=== PATIENT | female | born 1965 | race Caucasian/White ===

== ENCOUNTER 2016-08-11 14:25 | Inpatient (IN) | payer SELFPAY ==
[~2016-08-11] VITALS: Ht 162.6 cm; Wt 43.7 kg
[2016-08-11] MEDS ORDERED: ONDANSETRON 4 MG VIAL ONE (21:18)
[2016-08-11] MEDS ORDERED: SODIUM CHLORIDE 0.9% 1,000 ML ONE (21:19)
[2016-08-11] MEDS ORDERED: MORPHINE 4 MG/ML SYR ONE ×2 (21:19→22:51)
[2016-08-11] MEDS ORDERED: PROMETHAZINE 25 MG/ML VIAL ONE (22:50)
[2016-08-11] MEDS ORDERED: MORPHINE 2 MG/ML SYR ONE (23:36)
[2016-08-12] MEDS ORDERED: SALINE FLUSH 10 ML FLUSH PRN (03:50)
[2016-08-12] MEDS ORDERED: DUONEB INH SCH (03:50)
[2016-08-12] MEDS ORDERED: TRAZODONE 100 MG TAB PO PRN (03:50)
[2016-08-12] MEDS: SODIUM CHLORIDE 0.9% FLUSH BAG 500 ML IV SCH (05:19)
[2016-08-12] MEDS: SODIUM CHLORIDE 0.9% 1,000 ML IV SCH ×2 (05:20→17:29)
[2016-08-12 05:27] VITALS: RESP 20
[2016-08-12 05:36] VITALS: BMI 16.5
[2016-08-12 05:37] VITALS: BP_SYST 139; RESP 12; TEMP 98.1
[2016-08-12] MEDS ORDERED: *PINK BRACELET XX ONE (05:40)
[2016-08-12] MEDS: LEVOTHYROXINE 0.088 MG TAB PO SCH (06:01)
[2016-08-12] MEDS: ONDANSETRON 4 MG VIAL IV PRN ×2 (06:30→13:14)
[2016-08-12] MEDS: *HOME MEDS KEPT IN PHARMACY XX SCH ×2 (08:00→19:23)
[2016-08-12] MEDS ORDERED: MISSING DOSE XX ONE (09:00)
[2016-08-12] MEDS: BUPROPION XL 150 MG TAB PO SCH (09:15)
[2016-08-12] MEDS: SALINE FLUSH 10 ML FLUSH SCH ×2 (09:16→19:23)
[2016-08-12] MEDS: FLUOXETINE 20 MG CAP PO SCH (09:16)
[2016-08-12 09:55] VITALS: Ht 162.6 cm; Wt 43.7 kg
[2016-08-12 10:59] VITALS: BP_SYST 104; RESP 16; TEMP 98
[2016-08-12] MEDS: DUONEB INH SCH ×3 (14:26→22:31)
[2016-08-12 15:44] VITALS: BP_SYST 122; RESP 16; TEMP 98.2
[2016-08-12] MEDS: QUETIAPINE XR 50 MG TAB PO SCH (17:00)
[2016-08-12 19:43] VITALS: BP_SYST 123; RESP 16; TEMP 98.5
[2016-08-12] MEDS: MIRTAZAPINE 15 MG TAB PO SCH (20:24)
[2016-08-12 23:22] VITALS: BP_SYST 110; RESP 18; TEMP 99.3
[2016-08-13] MEDS: ONDANSETRON 4 MG VIAL IV PRN ×3 (02:35→17:24)
[2016-08-13 03:57] VITALS: BP_SYST 131; RESP 16; TEMP 98.2
[2016-08-13] MEDS: SODIUM CHLORIDE 0.9% FLUSH BAG 500 ML IV SCH (05:02)
[2016-08-13] MEDS: PANTOPRAZOLE 40 MG TAB PO SCH (06:07)
[2016-08-13] MEDS: SODIUM CHLORIDE 0.9% 1,000 ML IV SCH ×2 (06:07→22:33)
[2016-08-13] MEDS: LEVOTHYROXINE 0.088 MG TAB PO SCH (06:07)
[2016-08-13] MEDS: SALINE FLUSH 10 ML FLUSH SCH ×2 (07:09→20:00)
[2016-08-13 07:33] VITALS: BP_SYST 133; RESP 15; TEMP 98.5
[2016-08-13] MEDS: DUONEB INH SCH ×4 (07:41→22:23)
[2016-08-13] MEDS: *HOME MEDS KEPT IN PHARMACY XX SCH ×2 (08:00→20:00)
[2016-08-13] MEDS: POTASSIUM CHLORIDE PREMIX 50 ML IV SCH ×6 (08:15→13:25)
[2016-08-13] MEDS: BUPROPION XL 150 MG TAB PO SCH (08:19)
[2016-08-13] MEDS: FLUOXETINE 20 MG CAP PO SCH (08:19)
[2016-08-13 12:24] VITALS: BP_SYST 138; RESP 15; TEMP 98.3
[2016-08-13] MEDS ORDERED: PROMETHAZINE 25 MG/ML VIAL IV PRN (13:35)
[2016-08-13 14:54] VITALS: BP_SYST 151; RESP 15; TEMP 98.6
[2016-08-13] MEDS: QUETIAPINE XR 50 MG TAB PO SCH (17:14)
[2016-08-13 19:41] VITALS: BP_SYST 123; RESP 16; TEMP 98.7
[2016-08-13] MEDS: MIRTAZAPINE 15 MG TAB PO SCH (21:00)
[2016-08-13] MEDS ORDERED: MORPHINE 2 MG/ML SYR IV PRN ×2 (21:15→21:20)
[2016-08-13] MEDS: MORPHINE 4 MG/ML SYR IV PRN (22:01)
[2016-08-13 22:50] VITALS: BP_SYST 141; RESP 16; TEMP 97.4
[2016-08-14] VITALS (19 sets, daily range): BP systolic 96–159; RESP 8–29; TEMP 95–98.7
[2016-08-14] MEDS: SODIUM CHLORIDE 0.9% FLUSH BAG 500 ML IV SCH (06:00)
[2016-08-14] MEDS: LEVOTHYROXINE 0.088 MG TAB PO SCH (06:30)
[2016-08-14] MEDS: PANTOPRAZOLE 40 MG TAB PO SCH (06:30)
[2016-08-14] MEDS: SODIUM CHLORIDE 0.9% 1,000 ML IV SCH ×2 (06:35→18:36)
[2016-08-14] MEDS: *HOME MEDS KEPT IN PHARMACY XX SCH ×2 (08:00→19:30)
[2016-08-14] MEDS: SALINE FLUSH 10 ML FLUSH SCH ×2 (08:00→20:00)
[2016-08-14] MEDS: DUONEB INH SCH ×4 (08:16→23:12)
[2016-08-14] MEDS: ONDANSETRON 4 MG VIAL IV PRN ×2 (09:31→15:14)
[2016-08-14] MEDS ORDERED: SODIUM CHLORIDE 0.9% 1,000 ML IV SCH (11:25)
[2016-08-14] MEDS ORDERED: MIDAZOLAM 2 MG/2 ML INJ IV ONE (11:25)
[2016-08-14] MEDS ORDERED: GLYCOPYRROLATE 0.2 MG/ML VIAL IV ONE (11:25)
[2016-08-14] MEDS ORDERED: MORPHINE 2 MG/ML SYR IV PRN (11:50)
[2016-08-14] MEDS ORDERED: MORPHINE 4 MG/ML SYR IV PRN (11:50)
[2016-08-14] MEDS ORDERED: MEPERIDINE 25 MG/ML IV PRN (11:50)
[2016-08-14] MEDS ORDERED: DILAUDID 1 MG/ML AMP IV PRN (11:50)
[2016-08-14] MEDS ORDERED: ONDANSETRON 4 MG VIAL IV PRN (11:50)
[2016-08-14] MEDS ORDERED: OXYCODONE 5 MG TAB PO PRN (11:50)
[2016-08-14] MEDS: BUPROPION XL 150 MG TAB PO SCH (13:37)
[2016-08-14] MEDS: FLUOXETINE 20 MG CAP PO SCH (13:37)
[2016-08-14] MEDS ORDERED: FENTANYL 100 MCG/2 ML AMP IV ONE (14:01)
[2016-08-14] MEDS ORDERED: PROPOFOL 50ML PER ML IV ONE (14:01)
[2016-08-14] MEDS: MORPHINE 4 MG/ML SYR IV PRN ×2 (14:02→21:33)
[2016-08-14] MEDS: QUETIAPINE XR 50 MG TAB PO SCH (16:35)
[2016-08-14] MEDS: MIRTAZAPINE 15 MG TAB PO SCH (21:00)
[2016-08-14] MEDS ORDERED: MIDAZOLAM 2 MG/2 ML INJ ONE (22:34)
[2016-08-15] VITALS (7 sets, daily range): BP systolic 96–152; RESP 16–18; TEMP 97.8–100.4
[2016-08-15] MEDS: SODIUM CHLORIDE 0.9% FLUSH BAG 500 ML IV SCH (06:00)
[2016-08-15] MEDS: PANTOPRAZOLE 40 MG TAB PO SCH ×2 (06:22→08:44)
[2016-08-15] MEDS: LEVOTHYROXINE 0.088 MG TAB PO SCH ×2 (06:22→08:44)
[2016-08-15] MEDS: SODIUM CHLORIDE 0.9% 1,000 ML IV SCH (06:23)
[2016-08-15] MEDS: DUONEB INH SCH ×4 (07:00→22:18)
[2016-08-15] MEDS: ONDANSETRON 4 MG VIAL IV PRN ×2 (07:45→12:06)
[2016-08-15] MEDS: MORPHINE 4 MG/ML SYR IV PRN (07:45)
[2016-08-15] MEDS: SALINE FLUSH 10 ML FLUSH SCH ×3 (07:46→21:11)
[2016-08-15] MEDS: *HOME MEDS KEPT IN PHARMACY XX SCH ×2 (07:46→19:24)
[2016-08-15] MEDS ORDERED: ACETAMINOPHEN 325 MG TAB PO PRN (08:15)
[2016-08-15] MEDS: BUPROPION XL 150 MG TAB PO SCH (08:44)
[2016-08-15] MEDS: FLUOXETINE 20 MG CAP PO SCH (08:44)
[2016-08-15] MEDS: QUETIAPINE XR 50 MG TAB PO SCH (16:01)
[2016-08-15] MEDS ORDERED: MISSING DOSE XX ONE (20:35)
[2016-08-15] MEDS: MIRTAZAPINE 15 MG TAB PO SCH (21:10)
[2016-08-16] MEDS: SODIUM CHLORIDE 0.9% 1,000 ML IV SCH (00:52)
[2016-08-16 04:21] VITALS: BP_SYST 90; RESP 16; TEMP 98.9
[2016-08-16] MEDS: SODIUM CHLORIDE 0.9% FLUSH BAG 500 ML IV SCH (06:00)
[2016-08-16] MEDS: LEVOTHYROXINE 0.088 MG TAB PO SCH (06:16)
[2016-08-16] MEDS: PANTOPRAZOLE 40 MG TAB PO SCH (06:16)
[2016-08-16 07:12] VITALS: BP_SYST 100; RESP 18; TEMP 97.9
[2016-08-16] MEDS: DUONEB INH SCH (07:17)
[2016-08-16] MEDS: ONDANSETRON 4 MG VIAL IV PRN (07:21)
[2016-08-16] MEDS: SALINE FLUSH 10 ML FLUSH SCH (08:00)
[2016-08-16] MEDS: *HOME MEDS KEPT IN PHARMACY XX SCH (08:00)
[2016-08-16] MEDS: FLUOXETINE 20 MG CAP PO SCH (09:00)
[2016-08-16] MEDS: BUPROPION XL 150 MG TAB PO SCH (09:00)
[2016-08-16] MEDS ORDERED: MISSING DOSE XX ONE (11:45)
[2016-08-16 12:23] VITALS: BP_SYST 100; RESP 18; TEMP 97.9
[2016-08-17] MEDS ORDERED: SODIUM CHLORIDE 0.9% FLUSH BAG 500 ML IV SCH (06:00)
== END 2016-08-16 14:09 | disposition home or self-care (01) | DRG 330 ==
LOC: ENRESERVTM → ENRESERVDT → ER 14:25 → EMR 08-12 03:48 → ENPENDDIS 08-12 03:48 → 5THW 08-12 05:07
PROVIDERS: ADMIT Internal Medicine; ATTEND Internal Medicine
PROC: 0HN7XZZ Release Abdomen Skin, External Approach (ICD-10-PCS; 2016-08-14)
PROC: 0D7 Gastrointestinal System, Dilation (ICD-10-PCS; principal; 2016-08-14 11:37)
CPT/HCPCS: 74020; 74176; 80048; 80053; 81003; 82947; 85025; 94640; 94799; 96374; 96375; 96376; 99222; 99232; 99233; 99238

== ENCOUNTER 2016-09-02 16:34 | Inpatient (IN) | payer MEDICARE ==
[~2016-09-02] VITALS: Ht 162.6 cm; Wt 53.5 kg
[~2016-09-02 16:34] MED LIST: BUPIVACA/EPI 0.25% PF 30ML NERVEBLOCK ONE; FENTANYL 100 MCG/2 ML AMP IV ONE; MIDAZOLAM 2 MG/2 ML INJ IV ONE; PROPOFOL 50ML VIAL IV ONE
[2016-09-02] MEDS ORDERED: LACT RINGERS 1,000 ML IV ONE ×2 (19:09→20:49)
[2016-09-02] MEDS ORDERED: SODIUM CHLORIDE 0.9% 1,000 ML ONE (19:10)
[2016-09-02] MEDS ORDERED: VANCOMYCIN 750 MG in SODIUM CHLORIDE 0.9% 250 ML IV ONE (20:40)
[2016-09-02] MEDS ORDERED: PIPERACIL/TAZO 4.5GM/100ML 100 ML IV ONE (20:40)
[2016-09-02] MEDS ORDERED: ONDANSETRON 4 MG VIAL IV PUSH PRN (21:50)
[2016-09-02] MEDS ORDERED: SODIUM CHLORIDE 0.9% 1,000 ML IV SCH (21:50)
[2016-09-02] MEDS ORDERED: ACETAMINOPHEN 325 MG TAB PO PRN (21:50)
[2016-09-02] MEDS ORDERED: PHARMACY TO DOSE ANTIBIOTIC IV SCH ×2 (21:50)
[2016-09-02] MEDS ORDERED: SALINE FLUSH 10 ML FLUSH PRN (21:50)
[2016-09-02] MEDS ORDERED: PHARMACY TO DOSE VANCOMYCIN IV SCH ×2 (21:50→22:05)
[2016-09-02] MEDS ORDERED: PHARMACY TO DOSE ZOSYN IV SCH (22:05)
[2016-09-02] MEDS ORDERED: SOD BICARB 8.4% SYR 50 ML IV ONE (22:10)
[2016-09-02] MEDS ORDERED: SODIUM CHLORIDE 0.9% IV SCH (23:05)
[2016-09-02] MEDS ORDERED: SODIUM BICARB 8.4% IV SCH (23:05)
[2016-09-02 23:30] VITALS: BMI 14.9
[2016-09-02 23:45] VITALS: BP_SYST 116; RESP 13
[2016-09-03] VITALS (53 sets, daily range): BP systolic 64–116; RESP 10–18; TEMP 97.6–99.1; Ht 162.6 cm; Wt 53.5 kg
[2016-09-03] MEDS ORDERED: SOD BICARB 8.4% SYR 50 ML IV ONE (02:30)
[2016-09-03] MEDS ORDERED: SODIUM BICARB 8.4% IV SCH (02:35)
[2016-09-03] MEDS ORDERED: SODIUM CHLORIDE 0.9% IV SCH (02:35)
[2016-09-03] MEDS: SODIUM CHLORIDE 0.9% FLUSH BAG 500 ML IV SCH (06:00)
[2016-09-03] MEDS ORDERED: SODIUM CHLORIDE 0.9% 1,000 ML ONE (06:35)
[2016-09-03] MEDS ORDERED: MORPHINE 4 MG/ML SYR ONE (06:35)
[2016-09-03] MEDS ORDERED: ONDANSETRON 4 MG VIAL ONE (06:35)
[2016-09-03] MEDS: PIPERACIL/TAZO 2.25GM/50ML 50 ML IV SCH ×2 (08:12→16:37)
[2016-09-03] MEDS: SALINE FLUSH 10 ML FLUSH SCH ×2 (08:23→20:02)
[2016-09-03] MEDS ORDERED: TRAZODONE 100 MG TAB PO PRN (10:55)
[2016-09-03] MEDS: FLUOXETINE 20 MG CAP PO SCH (12:03)
[2016-09-03] MEDS: SACCHA BOULARDII 250MG CAP PO SCH ×3 (12:03→20:08)
[2016-09-03] MEDS: LEVOTHYROXINE 0.088 MG TAB PO SCH (12:03)
[2016-09-03] MEDS: POTASSIUM CHLORIDE PREMIX 50 ML IV SCH ×7 (12:03→23:06)
[2016-09-03] MEDS: PANTOPRAZOLE 40 MG TAB PO SCH (12:04)
[2016-09-03] MEDS: BUPROPION XL 150 MG TAB PO SCH (12:04)
[2016-09-03] MEDS: LACT RINGERS 1,000 ML IV SCH ×2 (12:05→17:45)
[2016-09-03] MEDS ORDERED: VANCOMYCIN 500 MG in SODIUM CHLORIDE 0.9% 100 ML IV ONE (13:00)
[2016-09-03] MEDS: QUETIAPINE XR 50 MG TAB PO SCH (16:37)
[2016-09-03] MEDS: MIRTAZAPINE 15 MG TAB PO SCH (20:09)
[2016-09-03] MEDS: LOPERAMIDE 2 MG CAPSULE PO PRN (20:15)
[2016-09-03] MEDS ORDERED: SODIUM CHLORIDE 0.9% 1,000 ML IV ONE (20:55)
[2016-09-03] MEDS ORDERED: DOCUSATE SOD 100 MG CAP PO SCH (21:00)
[2016-09-04] VITALS (74 sets, daily range): BP systolic 66–122; RESP 10–24; TEMP 96.7–98.6
[2016-09-04] MEDS: POTASSIUM CHLORIDE PREMIX 50 ML IV SCH (00:23)
[2016-09-04] MEDS: PIPERACIL/TAZO 2.25GM/50ML 50 ML IV SCH ×2 (00:24→08:41)
[2016-09-04] MEDS ORDERED: NOREPINEPHRINE 16 MG in DEXTROSE 5% 234 ML IV PRN (00:45)
[2016-09-04] MEDS: MAGNESIUM SULF 1 GM/100 ML 100 ML IV SCH ×2 (01:08→01:45)
[2016-09-04] MEDS: LACT RINGERS 1,000 ML IV SCH ×2 (04:35→18:12)
[2016-09-04] MEDS: PANTOPRAZOLE 40 MG TAB PO SCH (06:31)
[2016-09-04] MEDS: LEVOTHYROXINE 0.088 MG TAB PO SCH (06:31)
[2016-09-04] MEDS: SODIUM CHLORIDE 0.9% FLUSH BAG 500 ML IV SCH (06:32)
[2016-09-04] MEDS: SALINE FLUSH 10 ML FLUSH SCH ×2 (08:41→20:23)
[2016-09-04] MEDS: SACCHA BOULARDII 250MG CAP PO SCH ×3 (08:42→20:23)
[2016-09-04] MEDS: FLUOXETINE 20 MG CAP PO SCH (08:43)
[2016-09-04] MEDS ORDERED: POTASSIUM PHOSPHATE 30 MMOL in SODIUM CHLORIDE 0.9% 250 ML IV ONE (09:15)
[2016-09-04] MEDS: BUPROPION XL 150 MG TAB PO SCH (10:03)
[2016-09-04] MEDS: MIDODRINE 10 MG TAB PO SCH ×2 (12:55→16:07)
[2016-09-04] MEDS: VANCOMYCIN 500 MG in SODIUM CHLORIDE 0.9% 100 ML IV SCH (12:55)
[2016-09-04] MEDS: QUETIAPINE XR 50 MG TAB PO SCH (16:08)
[2016-09-04] MEDS ORDERED: DIPHENOXYLATE/ATROP TAB 2.5 MG TAB PO PRN (17:20)
[2016-09-04] MEDS ORDERED: MISSING DOSE XX ONE (20:05)
[2016-09-04] MEDS: MIRTAZAPINE 15 MG TAB PO SCH (20:23)
[2016-09-05] VITALS (62 sets, daily range): BP systolic 70–138; RESP 8–28; TEMP 96.8–98.1
[2016-09-05] MEDS: LACT RINGERS 1,000 ML IV SCH ×4 (00:29→19:36)
[2016-09-05] MEDS: SODIUM CHLORIDE 0.9% FLUSH BAG 500 ML IV SCH (06:00)
[2016-09-05] MEDS: MIDODRINE 10 MG TAB PO SCH ×3 (07:00→15:57)
[2016-09-05] MEDS ORDERED: POTASSIUM PHOSPHATE 30 MMOL in SODIUM CHLORIDE 0.9% 250 ML IV ONE (07:50)
[2016-09-05] MEDS: LEVOTHYROXINE 0.088 MG TAB PO SCH (08:26)
[2016-09-05] MEDS: PANTOPRAZOLE 40 MG TAB PO SCH (08:26)
[2016-09-05] MEDS: SALINE FLUSH 10 ML FLUSH SCH ×2 (08:27→19:31)
[2016-09-05] MEDS: MAGNESIUM SULF 1 GM/100 ML 100 ML IV SCH ×2 (08:27→09:57)
[2016-09-05] MEDS: SACCHA BOULARDII 250MG CAP PO SCH ×3 (08:28→19:32)
[2016-09-05] MEDS: FLUOXETINE 20 MG CAP PO SCH (08:28)
[2016-09-05] MEDS: MORPHINE 2 MG/ML SYR IV PRN ×2 (09:08→23:44)
[2016-09-05] MEDS: POTASSIUM CHLORIDE PREMIX 50 ML IV SCH ×2 (09:15→10:55)
[2016-09-05] MEDS: BUPROPION XL 150 MG TAB PO SCH (09:15)
[2016-09-05] MEDS ORDERED: LACT RINGERS 1,000 ML IV ONE (11:05)
[2016-09-05] MEDS: VANCOMYCIN 500 MG in SODIUM CHLORIDE 0.9% 100 ML IV SCH (11:54)
[2016-09-05] MEDS ORDERED: ONDANSETRON 4 MG VIAL IV PRN (16:00)
[2016-09-05] MEDS ORDERED: OXYCODONE 5 MG TAB PO PRN (16:00)
[2016-09-05] MEDS ORDERED: MEPERIDINE 25 MG/ML IV PRN (16:00)
[2016-09-05] MEDS ORDERED: DILAUDID 1 MG/ML AMP IV PRN (16:00)
[2016-09-05] MEDS ORDERED: MORPHINE 2 MG/ML SYR IV PRN (16:00)
[2016-09-05] MEDS ORDERED: MORPHINE 4 MG/ML SYR IV PRN (16:00)
[2016-09-05] MEDS: QUETIAPINE XR 50 MG TAB PO SCH (18:19)
[2016-09-05] MEDS: TRAZODONE 100 MG TAB PO SCH (19:33)
[2016-09-05] MEDS: MIRTAZAPINE 15 MG TAB PO SCH (19:33)
[2016-09-05] MEDS: LOPERAMIDE 2 MG CAPSULE PO PRN (19:44)
[2016-09-06] VITALS (27 sets, daily range): BP systolic 75–114; RESP 11–21; TEMP 97.8–99
[2016-09-06] MEDS: SODIUM CHLORIDE 0.9% FLUSH BAG 500 ML IV SCH ×2 (03:24)
[2016-09-06] MEDS: LACT RINGERS 1,000 ML IV SCH ×3 (03:24→23:36)
[2016-09-06] MEDS: MIDODRINE 10 MG TAB PO SCH ×4 (05:51→19:31)
[2016-09-06] MEDS: LEVOTHYROXINE 0.088 MG TAB PO SCH (05:51)
[2016-09-06] MEDS: PANTOPRAZOLE 40 MG TAB PO SCH (05:51)
[2016-09-06] MEDS: BUPROPION XL 150 MG TAB PO SCH (08:22)
[2016-09-06] MEDS: SACCHA BOULARDII 250MG CAP PO SCH ×3 (08:22→19:31)
[2016-09-06] MEDS: FLUOXETINE 20 MG CAP PO SCH (08:22)
[2016-09-06] MEDS: SALINE FLUSH 10 ML FLUSH SCH ×2 (08:23→19:30)
[2016-09-06] MEDS ORDERED: IRON SUCROSE COMPLEX 500 MG in SODIUM CHLORIDE 0.9% 250 ML IV ONE (11:10)
[2016-09-06] MEDS: ALBUMIN 12.5 GM/50 ML (25%) IV SCH ×3 (13:02→23:32)
[2016-09-06] MEDS: VANCOMYCIN 750 MG in SODIUM CHLORIDE 0.9% 250 ML IV SCH (14:59)
[2016-09-06] MEDS: QUETIAPINE XR 50 MG TAB PO SCH (16:16)
[2016-09-06] MEDS: MORPHINE 2 MG/ML SYR IV PRN (16:48)
[2016-09-06] MEDS ORDERED: EXCEDRIN EXTRA STR TAB PO PRN (17:05)
[2016-09-06] MEDS: LOPERAMIDE 2 MG CAPSULE PO PRN (19:31)
[2016-09-06] MEDS: MIRTAZAPINE 15 MG TAB PO SCH (19:31)
[2016-09-06] MEDS: TRAZODONE 100 MG TAB PO SCH (19:31)
[2016-09-07] VITALS (20 sets, daily range): BP systolic 95–122; RESP 9–20; TEMP 97.7–99.1
[2016-09-07] MEDS: MORPHINE 2 MG/ML SYR IV PRN ×5 (00:44→20:04)
[2016-09-07] MEDS: PANTOPRAZOLE 40 MG TAB PO SCH (05:14)
[2016-09-07] MEDS: MIDODRINE 10 MG TAB PO SCH (05:14)
[2016-09-07] MEDS: LEVOTHYROXINE 0.088 MG TAB PO SCH (05:14)
[2016-09-07] MEDS: SODIUM CHLORIDE 0.9% FLUSH BAG 500 ML IV SCH ×2 (05:17)
[2016-09-07] MEDS: BUPROPION XL 150 MG TAB PO SCH (08:08)
[2016-09-07] MEDS: FLUOXETINE 20 MG CAP PO SCH (08:09)
[2016-09-07] MEDS: SACCHA BOULARDII 250MG CAP PO SCH ×3 (08:09→20:06)
[2016-09-07] MEDS: SALINE FLUSH 10 ML FLUSH SCH ×2 (08:10→20:00)
[2016-09-07] MEDS: ALBUMIN 12.5 GM/50 ML (25%) IV SCH ×3 (08:10→23:29)
[2016-09-07] MEDS: KCL CR 10 MEQ CAP PO SCH ×2 (09:26→20:07)
[2016-09-07] MEDS: MAGNESIUM SULF 1 GM/100 ML 100 ML IV SCH ×2 (09:27→11:18)
[2016-09-07] MEDS: VANCOMYCIN 750 MG in SODIUM CHLORIDE 0.9% 250 ML IV SCH (15:03)
[2016-09-07] MEDS: QUETIAPINE XR 50 MG TAB PO SCH (16:06)
[2016-09-07] MEDS: LACT RINGERS 1,000 ML IV SCH (17:55)
[2016-09-07] MEDS: TRAZODONE 100 MG TAB PO SCH (20:06)
[2016-09-07] MEDS: MIRTAZAPINE 15 MG TAB PO SCH (20:06)
[2016-09-08] VITALS (9 sets, daily range): BP systolic 99–136; RESP 18–20; TEMP 98.5–99
[2016-09-08] MEDS: MORPHINE 2 MG/ML SYR IV PRN ×4 (00:18→15:11)
[2016-09-08] MEDS: LACT RINGERS 1,000 ML IV SCH (03:09)
[2016-09-08] MEDS: SODIUM CHLORIDE 0.9% FLUSH BAG 500 ML IV SCH ×2 (05:16)
[2016-09-08] MEDS: PANTOPRAZOLE 40 MG TAB PO SCH (06:06)
[2016-09-08] MEDS: LEVOTHYROXINE 0.088 MG TAB PO SCH (06:06)
[2016-09-08] MEDS: SALINE FLUSH 10 ML FLUSH SCH (07:37)
[2016-09-08] MEDS: SACCHA BOULARDII 250MG CAP PO SCH ×2 (08:07→15:56)
[2016-09-08] MEDS: FLUOXETINE 20 MG CAP PO SCH (08:08)
[2016-09-08] MEDS: BUPROPION XL 150 MG TAB PO SCH (08:08)
[2016-09-08] MEDS: KCL CR 10 MEQ CAP PO SCH (08:08)
[2016-09-08] MEDS: ALBUMIN 12.5 GM/50 ML (25%) IV SCH (09:35)
[2016-09-08] MEDS ORDERED: POTASSIUM PHOSPHATE 15 MMOL in SODIUM CHLORIDE 0.9% 250 ML IV ONE (10:35)
[2016-09-08] MEDS: VANCOMYCIN 750 MG in SODIUM CHLORIDE 0.9% 250 ML IV SCH (15:55)
[2016-09-08] MEDS: QUETIAPINE XR 50 MG TAB PO SCH (16:00)
== END 2016-09-08 18:48 | disposition home or self-care (01) | DRG 314 ==
LOC: ENRESERVDT → ENRESERVTM → ER 16:34 → EMR 21:50 → ENPENDDIS 21:50 → ICU 23:27 → 3NT 09-07 17:42
PROVIDERS: ADMIT Internal Medicine; ATTEND Internal Medicine
PROC: 02HV33Z Insertion of Infusion Device into Superior Vena Cava, Percutaneous Approach (ICD-10-PCS; principal; 2016-09-04)
PROC: 0JPT0XZ Removal of Tunneled Vascular Access Device from Trunk Subcutaneous Tissue and Fascia, Open Approach (ICD-10-PCS; 2016-09-05)
DX: T80.219A Unspecified infection due to central venous catheter, initial encounter (principal); A41.89 Other specified sepsis; E43 Unspecified severe protein-calorie malnutrition; R64 Cachexia; E87.2 Acidosis; K75.9 Inflammatory liver disease, unspecified; R65.20 Severe sepsis without septic shock; N17.9 Acute kidney failure, unspecified; N18.4 Chronic kidney disease, stage 4 (severe); E87.1 Hypo-osmolality and hyponatremia; Z68.1 Body mass index [BMI] 19.9 or less, adult; E87.6 Hypokalemia; I12.9 Hypertensive chronic kidney disease with stage 1 through stage 4 chronic kidney disease, or unspecified chronic kidney disease; K21.9 Gastro-esophageal reflux disease without esophagitis; G43.909 Migraine, unspecified, not intractable, without status migrainosus; E86.0 Dehydration; F17.210 Nicotine dependence, cigarettes, uncomplicated; J44.9 Chronic obstructive pulmonary disease, unspecified; F32.9 Major depressive disorder, single episode, unspecified; F41.9 Anxiety disorder, unspecified; F12.90 Cannabis use, unspecified, uncomplicated; E03.9 Hypothyroidism, unspecified; R19.7 Diarrhea, unspecified; E83.39 Other disorders of phosphorus metabolism; E83.42 Hypomagnesemia; Z93.2 Ileostomy status
CPT/HCPCS: 36415; 36430; 36569; 36600; 71010; 74176; 76937; 80047; 80048; 80051; 80053; 80069; 80202; 81001; 82274; 82330; 82533; 82553; 82803; 83540; 83605; 83630; 83735; 83930; 83935; 84100; 84132; 84145; 84300; 84466; 84484; 85014; 85025; 85610; 85730; 86850; 86900; 86901; 86923; 87040; 87045; 87046; 87088; 87177; 87278; 87493; 93005; 93306; 94799; 96360; 96361; 96365; 96367; 99233; 99291